=== PATIENT | female | born 1950 | race Caucasian/White ===

== ENCOUNTER 2022-06-03 10:07 | Emergency (ER) | payer OTHER ==
[~2022-06-03] VITALS: Ht 165.1 cm; Wt 77.6 kg
[2022-06-03 10:24] VITALS: BP_SYST 156
[2022-06-03] MEDS ORDERED: AMOX500T2 (10:32)
[2022-06-03] MEDS ORDERED: METF-379 (10:33)
[2022-06-03] MEDS ORDERED: MIRA25TA (10:33)
[2022-06-03] MEDS ORDERED: CLAR500T3 (10:33)
[2022-06-03] MEDS ORDERED: OMEP-268 (10:33)
--- NOTE | 2022-06-03 10:40 | NUR ---
Patient to ER bed H1 to gown for evaluation. Side rails up.
--- NOTE | 2022-06-03 11:00 | NUR ---
ER at bedside examining patient.
--- NOTE | 2022-06-03 11:00 | NUR ---
PT came in to ER A0x4. Brought in by self. Cheif complaint of bloody stools. Denies pain or discomfort; denies N/V has been having diarrhea since 4 am with bright red blood, multiple episodes. No fever no chills HX of DM2 , cirrhosis and glaucoma. taking medication routinely. Had appendectomy a few years ago. PT ambulatory. bed in low position and side rails up.
[2022-06-03] MEDS ORDERED: CIPR500T5 PO (11:20)
--- NOTE | 2022-06-03 11:40 | NUR ---
Patient given written and verbal discharge instructions and verbalizes understanding. ER MD Singh discussed with patient the results and treatment provided. Patient in stable condition. ID arm band removed. Patient educated on pain management and to follow up with PMD. Pain Scale . Opportunity for questions provided and answered. Medication side effect fact sheet provided.
[2022-06-03 11:48] VITALS: BP_SYST 145
== END 2022-06-03 11:40 | disposition home or self-care (01) ==
LOC: SED 10:07
DX: K62.5 Hemorrhage of anus and rectum (principal); R19.7 Diarrhea, unspecified; E11.9 Type 2 diabetes mellitus without complications; Z79.899 Other long term (current) drug therapy
CPT/HCPCS: 99283